=== PATIENT | female | born 1970 | race Two or more races ===

== ENCOUNTER 2025-06-19 15:56 | Emergency (ER) | payer MEDICAID ==
[~2025-06-19] VITALS: Ht 160 cm; Wt 93.9 kg
[2025-06-19 16:07] VITALS: TEMP 98.4
[2025-06-19 17:15] LABS: APPEARANCE,URINE CLEAR (CLEAR); BLOOD, URINE NEGATIVE Ery/uL (NEGATIVE); LEUKOCYTE ESTERASE ,URINE NEGATIVE (NEGATIVE); NITRITE, URINE NEGATIVE (NEGATIVE); UGLUCOSE NEGATIVE (NEGATIVE)
[2025-06-19 17:16] LABS: PLATELET COUNT (AUTO) 354 K/uL (150-450); RED BLOOD CELL COUNT(AUTO) 4.73 MIL/uL (4.0-5.2); RED CELL DISTRIBUTION WIDTH 13.6 % (11.5-15.0); WHITE BLOOD COUNT (AUTO) 9.2 K/uL (4.3-11.0)
[2025-06-19 17:27] LABS: ASPARTATE AMINOTRANSFERASE 16.0 U/L (15-37); CALCIUM, SERUM 9.1 mg/dL (8.5-10.1); CREATININE 0.8 mg/dL (0.6-1.3); SODIUM SERUM 143.0 mmol/L (136-145); TOTAL PROTEIN, SERUM 7.0 g/dL (6.4-8.2); UREA NITROGEN, BLOOD 20.0 mg/dL (7-18)
[2025-06-19 17:39] LABS: ADD URINE CULTURE YES; SQUAMOUS EPITHELIAL CELL,UR Many /HPF (None Seen)
[2025-06-19 17:41] LABS: PREGNANCY TEST URINE QUAL NEGATIVE (NEGATIVE)
[2025-06-19] MEDS ORDERED: CEFTRIAXONE 1GM BAG (ER ONLY) 50 ML IV ONE (18:30)
[2025-06-19] MEDS: CEFTRIAXONE 1 G in IV D5W 50 ML IV ONE (18:40)
[2025-06-19] MEDS ORDERED: CEPH-570 PO (19:23)
[2025-06-19] MEDS ORDERED: IBUP-1490 PO (19:23)
[2025-06-19 19:34] VITALS: BP 120/78; O2SAT 97
== END 2025-06-19 19:34 | disposition home or self-care (01) ==
LOC: ER 16:00
DX: R10.A2 Flank pain, left side (principal); I10 Essential (primary) hypertension; D25.9 Leiomyoma of uterus, unspecified
CPT/HCPCS: 99285; 74176; 96365; 85025; 87086; 84703; 81001; 36415; 80053; J0696 ×2; J7060